=== PATIENT | male | born 1955 | race Two or more races ===

== ENCOUNTER 2022-01-19 22:46 | Emergency (ER) | payer OTHER ==
[~2022-01-19] VITALS: Ht 190.5 cm; Wt 85.0 kg
[2022-01-20] MEDS ORDERED: KETOROLAC TROMETH 30 MG/ML 1ML VIAL IM ONE (00:15)
[2022-01-20 00:55] VITALS: BP 117/71
[2022-01-20] MEDS ORDERED: HYDR-4798 PO (01:17)
[2022-01-20] MEDS ORDERED: CYCL-837 PO (01:26)
== END 2022-01-20 01:45 | disposition home or self-care (01) ==
LOC: EDBD 22:46 → ER 22:46
DX: S01.01XA Laceration without foreign body of scalp, initial encounter (principal); M54.50 Low back pain, unspecified; M54.2 Cervicalgia; W18.00XA Striking against unspecified object with subsequent fall, initial encounter; Y93.89 Activity, other specified; Y92.092 Bedroom in other non-institutional residence as the place of occurrence of the external cause; Y99.8 Other external cause status
CPT/HCPCS: 70450; 72125; 93005; 96372; 99284; J1885

== ENCOUNTER 2024-11-08 08:11 | Emergency (ER) | payer OTHER ==
[~2024-11-08] VITALS: Ht 198.1 cm; Wt 100.0 kg
[~2024-11-08 08:11] MED LIST: CYCL-837 PO; HYDR-4798 PO
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
[2024-11-08 08:33] VITALS: PULSE 70; RESP 18; TEMP 98.3; O2SAT 97
--- NOTE | 2024-11-08 09:12 | DVH ---
CLINICAL INDICATION: fx TECHNIQUE: AP and lateral views of the left tibia and fibula were performed. XY L TIB FIB XRAY Comparison: None FINDINGS/IMPRESSION: 1. Displaced spiral fracture of the left distal fibular metaphysis. 2. No other fractures are identified about the left tibia or fibula. 3. Left total knee arthroplasty without evidence of periprosthetic fracture, loosening, or other comp lication. 4. Achilles insertion enthesophyte and small dorsally projecting bone spur from the talar neck incide ntally noted.
[2024-11-08 10:32] VITALS: BP 134/78; PULSE 61; RESP 20; O2SAT 99
--- NOTE | 2024-11-08 11:37 | DVH ---
US LT LOWER DVT US 11/08/2024 08:47 AM Clinical History: dvt Comparison: None Technique: Duplex Doppler evaluation of the deep venous system of the left lower extremity from the common femor al vein to the popliteal vein including color Doppler and spectral/pulsed waveform analysis was perfo rmed. Findings: The common femoral vein demonstrates appropriate compressibility and waveform variability. There is compressibility/patency of the great saphenous vein at the proximal thigh. The femoral vein demonstrates appropriate compressibility and waveform variability. The deep femoral vein demonstrates appropriate compressibility and waveform variability. The popliteal vein demonstrates appropriate compressibility and waveform variability. There is color flow in the tibioperoneal trunk and posterior tibial vein. Impression: 1. No deep venous thrombosis left lower extremity. If clinical concern/symptoms persist or worsen, s hort-interval follow-up study is suggested.
== END 2024-11-08 11:50 | disposition home or self-care (01) ==
LOC: ER 08:11
DX: S82.832A Other fracture of upper and lower end of left fibula, initial encounter for closed fracture (principal); E78.5 Hyperlipidemia, unspecified; Z90.49 Acquired absence of other specified parts of digestive tract; Z96.652 Presence of left artificial knee joint; Z98.890 Other specified postprocedural states; Z88.5 Allergy status to narcotic agent; X58.XXXA Exposure to other specified factors, initial encounter; Y93.89 Activity, other specified; Y92.89 Other specified places as the place of occurrence of the external cause; Y99.8 Other external cause status
CPT/HCPCS: 29515; 73590; 93971